=== PATIENT | male | born 1975 | race Caucasian/White ===

== ENCOUNTER 2022-09-21 18:39 | Emergency (ER) | payer SELFPAY ==
[2022-09-21 20:34] LABS: CORONAVIRUS COVID-19 NAA NEGATIVE (NEGATIVE); INFLUENZA A NAA NEGATIVE (NEGATIVE); INFLUENZA B NAA NEGATIVE (NEGATIVE); RESPIRATORY SYNCYTIAL VIR NAA NEGATIVE (NEGATIVE)
== END 2022-09-21 20:56 | disposition home or self-care (01) ==
LOC: MW.ED 18:39
DX: J02.9 Acute pharyngitis, unspecified (principal); H65.02 Acute serous otitis media, left ear; Z86.16 Personal history of COVID-19; Z72.0 Tobacco use; Z20.822 Contact with and (suspected) exposure to COVID-19
CPT/HCPCS: 0241U; 87651; 99283

== ENCOUNTER 2023-02-12 12:44 | Emergency (ER) | payer SELFPAY ==
[2023-02-12] MEDS ORDERED: fentaNYL 50 MCG/ML SDV IVPUSH ONE (13:24)
[2023-02-12] MEDS ORDERED: Sodium Chloride 0.9% 2.5 ML Syringe FLUSH PRN (13:24)
[2023-02-12] MEDS ORDERED: Sodium Chloride 0.9% 10 ML Syringe FLUSH PRN (13:24)
[2023-02-12] MEDS ORDERED: Aspirin 81 MG Tab.Chew PO ONE (13:24)
[2023-02-12] MEDS ORDERED: Sodium Chloride 0.9% 1,000 ML IV ONE (13:24)
[2023-02-12] MEDS ORDERED: Nitroglycerin 0.4 MG Tab.SL SL PRN (13:24)
[2023-02-12 13:33] LABS: BASOPHILS ABSOLUTE AUTO 0.1 K/uL (0.0-0.1); EOSINOPHILS ABSOLUTE AUTO 0.3 K/uL (0.0-0.7); HEMATOCRIT 42.4 % (38.0-50.0); HEMOGLOBIN 14.5 g/dL (13.0-17.0); LYMPHOCYTES ABSOLUTE AUTO 2.5 K/uL (0.6-2.4); LYMPHOCYTES PERCENT AUTO 30.8 % (16.0-40.0); MEAN CORPUSCULAR HEMOGLOBIN 30.7 pg (27.0-32.0); MEAN CORPUSCULAR HGB CONC 34.2 g/dL (31.0-37.0); MEAN CORPUSCULAR VOLUME 89.8 fL (80.0-98.0); MONOCYTES ABSOLUTE AUTO 0.6 K/uL (0.0-0.8); MONOCYTES PERCENT AUTO 7.4 % (0.0-15.0); NEUTROPHILS ABSOLUTE AUTO 4.6 K/uL (1.4-5.7); NEUTROPHILS PERCENT AUTO 56.8 % (48.0-80.0); NRBC ABSOLUTE 0 K/uL; PLATELET COUNT,PLT 176 K/uL (150-400); RED BLOOD CELL COUNT 4.72 M/uL (4.50-5.90); WHITE BLOOD CELL COUNT,WBC 8.06 K/uL (4.0-11.0)
[2023-02-12 14:19] LABS: INR 0.98 (0.86-1.11)
[2023-02-12 14:27] LABS: A/G RATIO 0.9 (0.9-1.6); ALANINE AMINOTRANSFERASE,ALT 52 IU/L (14-63); ALBUMIN 3.6 g/dL (3.4-5.0); ALKALINE PHOSPHATASE 61 U/L (46-116); ASPARTATE AMNIOTRANSFERASE,AST 16 IU/L (15-37); BILIRUBIN TOTAL 0.4 mg/dL (0.2-1.0); BLOOD UREA NITROGEN,BUN 10 mg/dL (7.0-18.0); CALCIUM 10.8 mg/dL (8.5-10.1); CARBON DIOXIDE,CO2 26.5 mmol/L (21.0-32.0); CHLORIDE,CL 101 mmol/L (98-107); CREATININE 1.2 mg/dL (0.8-1.3); EST CRCL DRUG DOSING (CG) 91.93 mL/min; GLUCOSE RANDOM 188 mg/dL (74-106); LIPASE 46 U/L (16-77); POTASSIUM,K 3.5 mmol/L (3.5-5.1); PROTEIN TOTAL,TP 7.4 g/dL (6.4-8.2); SODIUM,NA 138 mmol/L (136-148)
[2023-02-12 14:31] LABS: ESTIMATED GFR 76 mL/min (>60)
[2023-02-12] MEDS ORDERED: Iopamidol 755 MG/ML 500 ML Multipack Bottle IVPUSH STA (16:00)
== END 2023-02-12 18:34 | disposition home or self-care (01) ==
LOC: MW.ED 12:44
DX: R07.2 Precordial pain (principal); Z79.82 Long term (current) use of aspirin; Z86.16 Personal history of COVID-19
CPT/HCPCS: 36415; 71045; 71275; 80053; 83690; 83880; 84484; 85025; 85610; 93005; 96374; 99285; A9270; J3010; J7030; Q9967; 93010; 99284